=== PATIENT | male | born 1990 | race Hispanic/Latino ===

== ENCOUNTER 2024-09-10 00:06 | Emergency (ER) | payer BC ==
[~2024-09-10] VITALS: Ht 167.6 cm; Wt 94.3 kg
[2024-09-10] MEDS: ketOROlac 15MG/ML VIAL (15MG/ML) IM STA (00:34)
[2024-09-10] MEDS: HYDROcodone/APAP 5/325 1 TAB TABLET PO STA (00:34)
--- NOTE | 2024-09-10 00:43 | NUR ---
LEFT ANKLE REWRAP WITH BERYL BANDAGE AFTER XRAY AND NEW ICE PACK PROVIDED
--- NOTE | 2024-09-10 00:46 | NUR ---
PT DEMONSTRATES PROPER USAGE OF CRUTCH USAGE
--- NOTE | 2024-09-10 00:46 | NUR ---
CRUTCHES PT ARRIVED WITH BELONG TO A FAMILY MEMBER. NEW SET PROVIDED TO PT AFER TALKING WITH ISRA MALIK NP FOR HOME USE.
--- NOTE | 2024-09-10 02:33 | ERN ---
ED Note History of Present Illness Stated Complaint: LEFT ANKLE INJURY Chief Complaint: Ankle Problem Time Seen by MD: 00:15 Time Seen by Midlevel: 00:20 Dictation: 34-year-old male with no past medical history coming in complaining of left ankle pain onset at 6:00 a.m.. Patient missed a couple of steps going out of his RV and hold his. Patient continued to work on his foot. Then drove down to the [place] for 5 hours to be evaluated here in the hospital. Allergies: Coded Allergies: No Known Allergies (Unverified Allergy, Unknown, 09/10/24) Past Medical History Past Medical History: No Pertinent History Surgical History: Other Surgical History Other: BILATERAL EARS Review of System Dictation Constitutional: Negative for fever,chills, and weight loss Eyes: Negative for injury, pain,redness, and discharge ENT: Negative for injury,pain or swelling Cardiovascular: Negative for chest pain, palpitations, and edema Respiratory: Negative for shortness of breath, cough, and wheezing, Abdomen/GI: Negative for abdominal pain, nausea, vomiting, diarrhea, and constipation Back: Negative for injury and pain : Negative for injury, bleeding and discharge MS/Extremity: Negative for injury and deformity complaining left ankle pain Skin: Negative for rash, and discoloration Neuro: Negative for headache, weakness, numbness, tingling, and seizure Psych: Negative for suicide ideation, homicidal ideation, and hallucinations Review of Systems: was completed Initial Vital Sign VS Vital Signs Date Time Temp Pulse Resp B/P (MAP) Pulse Ox O2 Delivery O2 Flow Rate FiO2 09/10/24 00:07 97.3 91 20 151/103 99 Room Air Physical Exam Dictation General: awake, alert, NAD Head/Face: Normocephalic, atraumatic Eyes: PERRL, EOMI, vision at baseline ENT: oral cavity clear, TMs clear, no signs of infection Neck: Trachea midline, supple, no nuchal rigidity Cardiovascular: RRR, normal S1/S2, No MRGs, no JVD Respiratory: CTAB, no respiratory distress, No rales or wheezes Abdomen: Soft, non-tender, non-distended, normal bowel sounds, no guarding or rebound. Skin: Warm, dry, normal turgor, no rash MS/Extremity: Pulses equal, no cyanosis, neurovascular intact, left ankle pain on palpation, swollen, pedal pulse assessed via Doppler, sensation intact, extremities warm to touch. Neuro: COAx4, GCS 15, strength 5/5, CN 2-12 intact, normal cerebellar exam, normal gait, Psych: Normal behavior, mood, and affect normal ED Course ED Course Orders Procedure Category Date Status Time Foot Comp 3+Vws Lt RAD 09/10/24 Taken 00:11 Ankle Comp 3vws Lt RAD 09/10/24 Taken 00:11 Tibia/Fibula 2vws Lt RAD 09/10/24 Taken 00:11 Ketorolac PHA 09/10/24 Complete Tromethamine 15mg/Ml 00:27 Hydrocodone/Apap PHA 09/10/24 Complete 5/325 ([place] 5/325mg) 00:27 Crutches W/Training CPOE 09/10/24 Transmitted (Er) 00:48 Posterior Ankle Splint APURVA.ER 09/10/24 Transmitted 02:27 Current Medications Medications (Trade) Dose Ordered Sig/Maggy Route PRN Reason Start Time Stop Time Status Last Admin Dose Admin Acetaminophen/ Hydrocodone Bitart (NORco 5/325MG) 1 tab ONCE STAT PO 09/10/24 00:27 09/10/24 00:28 DC 09/10/24 00:34 Ketorolac Tromethamine (toRADol) 15 mg ONCE STAT IM 09/10/24 00:27 09/10/24 00:28 DC 09/10/24 00:34 Vital Signs Date Time Temp Pulse Resp B/P (MAP) Pulse Ox O2 Delivery O2 Flow Rate FiO2 09/10/24 00:07 97.3 91 20 151/103 99 Room Air Medical Decision Making MDM MDM: 34-year-old male with no past medical history coming in complaining of left ankle pain onset at 6:00 a.m.. Patient missed a couple of steps going out of his RV and hold his. Patient continued to work on his foot. Then drove down to the [place] for 5 hours to be evaluated here in the hospital. X-ray of the left ankle shows a possible medial malleolar fracture. X-ray of the foot and tib-fib are within normal range. X-rays were interpreted by me. Place patient on a posterior force splint with crutches. Educated that he needs to follow up with an orthopedic surgeon within 1-2 days. I will provide the orthopedic referral. Educated on signs and symptoms of when to return back to the emergency room. Both patient and spouse verbalized understanding, answered all questions. Differential diagnosis: Ankle sprain, ankle fracture ankle Rationale: Tests considered and ordered secondary to shared decision making include: Previous outside records reviewed: Old ER visits. Risk of complication and/or morbidity or mortality of patient management: None Medications-Per medication reconciliation Need for hospitalization: Patient does not meet criteria for hospitalization. Need for emergency major/minor surgery: No There are no social concerns with this patient. Prescription drug management Prescriptions will include symptomatic care Patient's prior external medical records from other ER visits were reviewed by me as indicated. Prior testing and results from previous visits were reviewed. Prior tests were taken into account with medical decision making and resource utilization, independent historian/historians were used to obtain complete medical history. I independently interpreted the test that were performed, results were reviewed by me and considered findings on radiology if ordered. Medical management and examination interpretation discussions were had by me with other qualified healthcare professionals as indicated for the patient's care. DX & DISP Disposition: Discharge Departure Impression: Primary Impression: Medial malleolar fracture Condition: Stable Additional Instructions: Rest and elevate the foot do not remove splint until told to do so by Orthopedic. You can take Tylenol or Motrin for pain management. Use crutches. You can elevate your leg and at ice pack to help with the swelling. If you notice any discoloration, numbness, tingling to your toes please report back to the emergency room. Referrals: SELF,REFERRAL (PCP) JIMMY RYAN MD Time of Disposition: 02:36 I have reviewed the case, and I agree with, Diagnosis and Plan ISRA MALIK NP Sep 10, 2024 02:33
[2024-09-10 03:17] VITALS: BP 132/74; PULSE 88; RESP 20; TEMP 98.5; O2SAT 99
--- NOTE | 2024-09-10 08:38 | HMCIMG ---
TIBIA/FIBULA 2VWS LT REASON: SLIP DOWN 3 STEPS, " ROLLED" LEFT ANLKE. SWELLING NOTED TECHNIQUE: 2 views were obtained. FINDINGS: There is an evulsion fracture of the medial malleolus better seen on the ankle images. Tibia and fibula appear otherwise intact. Joint spaces are preserved. Soft tissues appear unremarkable. IMPRESSION: 1. A pulse fracture of the left medial malleolus.
--- NOTE | 2024-09-10 08:40 | HMCIMG ---
ANKLE COMP 3VWS LT REASON: SLIP DOWN 3 STEPS, " ROLLED" LEFT ANLKE. SWELLING NOTED TECHNIQUE: 3 views were obtained. FINDINGS: There is an evulsion type fracture of the medial malleolus. There is 2 to 3 mm lateral separation of the malleolar fragment from the parent bone. Distal tibia appears otherwise normal. Distal fibula, the calcaneus and the talus appear unremarkable. IMPRESSION: 1. Avulsion type fracture medial malleolus, the fragment is displaced medially by 2 to 3 mm.
--- NOTE | 2024-09-10 08:40 | HMCIMG ---
FOOT COMP 3+VWS LT REASON: SLIP DOWN 3 STEPS, " ROLLED" LEFT ANLKE. SWELLING NOTED TECHNIQUE: 3 views were obtained. FINDINGS: There is no evidence of fracture or dislocation. There is no joint effusion. The soft tissues appear unremarkable. There is no evidence of a radiopaque foreign body. IMPRESSION: No acute findings.
== END 2024-09-10 03:19 | disposition home or self-care (01) ==
LOC: EDH 00:06
DX: S82.52XA Displaced fracture of medial malleolus of left tibia, initial encounter for closed fracture (principal); Z98.890 Other specified postprocedural states; X58.XXXA Exposure to other specified factors, initial encounter; Y93.89 Activity, other specified; Y92.89 Other specified places as the place of occurrence of the external cause; Y99.8 Other external cause status
CPT/HCPCS: 99284; 29515; 73610; 73630; 73590; 96372; J1885